=== PATIENT | female | born 1980 | race Caucasian/White ===

== ENCOUNTER 2016-05-10 14:27 | Outpatient (CLI) | payer SELFPAY ==
--- NOTE | 2016-05-10 16:49 | DIAGNOSTIC IMAGING REPORT ---
PROCEDURE: US OB LIMITED INDICATION: Late care. TECHNIQUE: Last scale and color Doppler sonographic images obtained of the gravid uterus. COMPARISON: None. FINDINGS: There is a third trimester viable intrauterine in cephalic position with cardiac activity (147). Placenta is grade 3 and right , although lower placenta location and cervix length are not well evaluated due to low head position. Amniotic fluid index is 12.8 cm (40th percentile). Normal cord Doppler ratios (1.9). Only one management (femur length 7.2 cm (37.0 weeks). IMPRESSION: 1. Third trimester viable intrauterine in cephalic position. 2. Amniotic fluid index 12.8 cm (40th percentile). 3. Normal cord Doppler ratios (1.9). 4. Low head position precludes evaluation of lower placenta and cervix length.
--- NOTE | 2016-05-10 19:11 | HISTORY AND PHYSICAL ---
ADMITTED: 05/10/2016 HISTORY OF PRESENT ILLNESS: A 35-year-old, 3, para 2, EDC 05/18/2016 by her own calculation, presents to [facility] with contractions. Contractions started on the day of admission. She denies bleeding or leakage of fluid. She reports contractions every 5 minutes. She does not recall her last menstrual period, but she states after she found out she was by a home test, she plugged her last menstrual period into an gustavo on the computer which gave her an EDC of 05/18/2016. She thinks the gustavo called for using the last day of her last menstrual period, but she does not recall for certain. She denies any care. She denies any lab tests, hospital visits, doctor visits, or ultrasound during this . She also denies any illness during this . Prior history: The patient has had 2 vaginal deliveries. She states they both came after her due date. She denies any complications or delivery complications during this . She states she thinks she had long labors and both of them lasting more than a day. She delivered at [facility] each time. She denies any anesthesia during either and states that both babies were born healthy. MEDICAL/SURGICAL HISTORY: The patient denies any prior diagnoses. She specifically denies asthma, diabetes, hypertension, heart disease. Surgeries: The patient denies any history of surgeries. MEDICATIONS: 1. ALLERGIES: 1. NONE. SOCIAL HISTORY: The patient is single. She has 2 children who live with her mother in [place] as the patient is homeless. She has been using heroin and lives "on the street." She states she smokes heroin about every 3 hours and has for the last 2 years. Alcohol use: None. Smoking: No tobacco, only heroin. FAMILY HISTORY: The patient denies family history of diabetes, hypertension, heart disease, and denies any family history of defects. REVIEW OF SYSTEMS: The patient denies fevers, chills, sweats. Neurological: The patient denies seizures, headaches, syncope. Cardiovascular: The patient denies chest pain, palpitations, or shortness of breath with exertion. Respiratory: The patient denies cough, wheezing, or pain with respirations. Gastrointestinal: The patient denies nausea, vomiting, diarrhea, or constipation. : The patient denies dysuria, hematuria, or frequency. PHYSICAL EXAMINATION: GENERAL: Well-developed, well-nourished, fatigued-appearing female with poor hygiene. VITAL SIGNS: Blood pressure 132/87. Pulse 101. Respirations 20. Temperature 98.1. HEENT: Clear. NECK: Supple without adenopathy or thyromegaly. CHEST: Clear to auscultation and percussion. HEART: Regular rate and rhythm without murmur. ABDOMEN: Positive bowel sounds. Soft, nontender, without hepatosplenomegaly or masses. Abdominal exam also reveals a gravid fundus with a 37 cm fundal height and vertex presentation. BACK: Straight without CVA tenderness. EXTREMITIES: Without cyanosis, clubbing, or edema. There is mild redness at the knee which is not tender and has full range of motion. The redness is just on the left. BREASTS: Exam shows mild fullness in the right upper quadrant of the right breast without adenopathy, induration, or erythema. The patient reports it to be slightly tender. She has not noted that problem before. She denies injury to it. GENITALIA: Normal external female genitalia. Vaginal vault reveals some whitish discharge. Cervix is high and posterior, approximately 50% effaced, and fingertip. NEUROLOGIC: The patient is moving all extremities. Deep tendon reflexes 2+ symmetric. LAB/IMAGING: panel drawn and pending. WBC 8.2, hemoglobin 10.8, hematocrit 32.1, platelets 282. Blood type A positive. Antibody screen negative. Urinalysis and urine toxicology pending. OB ultrasound obtained showing vertex presentation and vigorous-appearing female . NST was obtained showing good accelerations. Contractions were initially more frequent, but became irregular and approximately q.15 minutes. IMPRESSION: 1. Term intrauterine with uncertain dates. 2. False labor. 3. Heroin use. 4. Absence of care. PLAN: The patient kept for a period of observation as contractions became less and less frequent. Options were discussed including discharge from hospital. The patient agrees with plan for discharge and will return if she has recurrent labor. [facility] was [facility] the hospital for weekly care. vitamins advised. Methadone treatment options discussed.
== END 2016-05-10 18:40 | disposition home or self-care (01) ==
LOC: OBC SRH 14:27 → OB SRH 14:29 → OBC SRH 18:40
PROC: 4A0HXCZ Measurement of Products of Conception, Cardiac Rate, External Approach (ICD-10-PCS; principal; 2016-05-10)
DX: O47.1 False labor at or after 37 completed weeks of gestation (principal); O99.323 Drug use complicating pregnancy, third trimester; F11.90 Opioid use, unspecified, uncomplicated; O09.33 Supervision of pregnancy with insufficient antenatal care, third trimester; O09.73 Supervision of high risk pregnancy due to social problems, third trimester; Z59.0 Homelessness; Z3A.38 38 weeks gestation of pregnancy
CPT/HCPCS: 40003; 40016; 90001; 90004; 90078; 90155; 90261; 90364; 90599; 90851; 91004; 92760; 92761; 92762; 92763; 92764; 92765; 92766; 92767; 92863; 98480; 99777

== ENCOUNTER 2016-05-14 05:35 | Inpatient (IN) | payer SELFPAY ==
[2016-05-14] VITALS (9 sets, daily range): BP systolic 102–140; BP diastolic 64–90
[2016-05-14] MEDS ORDERED: PRENATAL VITAMINS PO (07:14)
--- NOTE | 2016-05-14 07:16 | HISTORY AND PHYSICAL ---
ADMITTED: 05/14/2016 CHIEF COMPLAINT: 1. Abdominal pain, in labor. HISTORY OF PRESENT ILLNESS: The patient is a 35-year-old G3, P2, who recently had been evaluated in the labor and delivery department here with lack of care and was found to be 37 and 5 less than a week ago, was discharged, was supposed to have followup with a provider and did not. Presented again in active labor and I was called to the OB department. When I came within minutes, she was She had a total of 3 pushes and then delivered an occiput anterior position baby with no nuchal cord. The baby was bulb suctioned on perineum and then cord clamped and cut, and the baby transferred to the warmer. There were no lacerations. The baby had a good spontaneous cry. The placenta was delivered spontaneously intact with light manual massage and the baby and mom were doing well after delivery. MEDICAL/SURGICAL HISTORY: Past medical history: She has generally been healthy. She has had no significant surgeries. She has had 2 previous deliveries. She denied asthma, diabetes, hypertension, as well. MEDICATIONS: 1. None. ALLERGIES: 1. SHE DENIES. SOCIAL HISTORY: She is single. She has 2 other children that live with her mother in [place]. The patient is living on the streets. She admits to smoking heroin and she has been doing this for the last number of years. She denies alcohol use. She does state that she does smoke tobacco as well. FAMILY HISTORY: She denies any diabetes, hypertension, heart disease. REVIEW OF SYSTEMS: Notable for severe pain when she came in with the contractions and also regular pains. PHYSICAL EXAMINATION: GENERAL: She is an alert female, who is sitting up in bed. She currently is and is complaining of crampy abdominal pain, "it hurts, it hurts." VITAL SIGNS: She is afebrile. ABDOMEN: Soft. Uterus is tender to palpation. GENITOURINARY/RECTAL: She has normal vaginal, perineum, and she is now . There are no lacerations. LUNGS: Clear to auscultation bilaterally. HEART: Regular rate and rhythm. BREAST: Deferred. NEUROLOGIC: Strength and sensation are grossly intact. LAB/IMAGING: All pending at this point. IMPRESSION: 1. Term intrauterine with a recent ultrasound showing greater than 37 weeks gestation, estimated date of confinement of 05/18/2016 on ultrasound. She is now post-delivery with a rapid delivery, presenting essentially . 2. Lack of care. 3. Heroin use. PLAN: The patient is now . We will see if we are able to keep her long enough to set her up with social and political studies professor and possible further treatment of her heroin addiction as an outpatient. We will also need to check on urine toxicology screen at this point. Her baby is going to need to go TIAGO protocol for withdrawals potentially.
--- NOTE | 2016-05-14 08:38 | NUR ---
PT TRANSFERED TO 319, DECLINED A SHOWER, FF 2 ABOVE U AND TO THE RIGHT, SUGGESTED SHE GET UP TO THE BATHROOM, C/O PAIN, 08/05 STARTED YEHUDA KIT, SHE IS VERY SOMNOLENT, JUST WANTS TO SLEEP, STATED IT'S OK TO FEED THE BABY IF SHE IS ASLEEP, INFORMED HER THAT CPS WILL BE NOTIFIED, LEFT MESSAGE FOR [facility] [employer] WORKED PT WOULD LIKE TO FIND A TREATMENT PROGRAM, THE PT MOTHER IS HERE AND WILL TAKE THE BABY, SHE HAS CUSTODY OF HER OTHER 2 CHILDREN,
--- NOTE | 2016-05-14 10:52 | NUR ---
woke pt up to do a fundal check, uterus was boggy and expressed a large clot with large amount of blood, massaged to firm, pericare given, pad changed, hung #3 Pit increased rate. will recheck in 1/2 hr
--- NOTE | 2016-05-14 11:18 | NUR ---
PT NAUSEATED, CALL DR GAYTAN AT [phone], HE WILL ENTER ORDERS
--- NOTE | 2016-05-14 11:32 | NUR ---
SPOKE TO HOLA MUELLER, SHE WILL BE SEEING PT SOON. EXPLAINED THAT SHE IS STARTING TO WITHDRAWL. NAUSEATED NOW BECOMING SLIGHTLY AGITATED
--- NOTE | 2016-05-14 12:57 | NUR ---
STARTED NEW MEDS FOR WITHDRAWL, SPOKE TO WALLACE MAYORGA CPS MAORI LIAISON ADVISER, ASKED ABOUT LIVING SITUATION, WHEN THE PT STATED SHE USED LAST, WHO HAS THE OTHER 2 CHILDREN
--- NOTE | 2016-05-14 20:52 | NUR ---
PT HAS BEEN SLEEPING SINCE 1500 & WOULD BARELY WAKE ENOUGH FOR ME TO ASSESS HER. WENT IN THE ROOM JUST NOW I COULD HEAR HER MOANING & GROANING. SHE HAS BLOOD SOILED UNDERPANTS ON WITH SATURATED PADS & REFUSES TO GET UP & TAKE CARE OF HERSELF. I LEFT CLEAN PANTS, PADS, & UNDERPAD AT BEDSIDE & ADVISED HER TO LET ME KNOW WHEN SHE WOULD LET ME TAKE CARE OF HER.
--- NOTE | 2016-05-14 21:37 | NUR ---
Patient behavior escalating, in a position. Moaning and repeating that she "can't do this". Calling her Mother to come in to see her. SO approaching nursing staff to help patient. Rinku driver. Discussed issues with . New orders received. Pt has not requested to see NB or asked on baby's welfare.
--- NOTE | 2016-05-14 22:42 | NUR ---
PT WRITHING AROUND IN BED MOANING & GROANING. HER MOTHER IS NOW HERE. EMESIS FOR THE LAST 20 MINUTES. TRAZADONE NOT GIVEN YET DUE TO CONSTANT EMESIS. DR. GAYTAN CALLED AGAIN. ORDERS RECD.
[2016-05-15 00:38] VITALS: BP 123/74
--- NOTE | 2016-05-15 01:00 | NUR ---
Baby Nazanin, On MARY Q3hrs continues. Not passing stool yet. Voids adequately. Skin [place], Warm & dry to touch.
[2016-05-15 01:52] VITALS: BP 115/67
--- NOTE | 2016-05-15 01:53 | NUR ---
Having periodic bouts of emesis. Kept down trazadone that was given earlier. One elevated b/p when in pain. B/P since have been wnl. No headacheor visual changes.
--- NOTE | 2016-05-15 02:25 | NUR ---
New Born Initial hearing screenings done. pass bilateral ear noted.
--- NOTE | 2016-05-15 03:00 | NUR ---
Lab;GADIEL drawn this AM.
[2016-05-15 04:07] VITALS: BP 118/58
--- NOTE | 2016-05-15 04:08 | NUR ---
Patient states "I want to go to a methadone program" . Informed that needed information can be given by environmental emergencies planner and patient would have to actively participate in plans. Will have environmental emergencies planner contact patient in AM.
--- NOTE | 2016-05-15 07:47 | Progress Note ---
Subjective General Per nursing was sleeping a lot yesterday. Has had good vitals. Some nausea and symptoms of w/d. Taking meds for w/d symptoms and then seems a little better. Has desire to continue to take some of the w/d meds. Overall feels ok. Physical Exam Vital Signs / I&Os Vital Signs Date Time Temp Pulse Resp B/P Pulse O2 O2 Flow FiO2 Ox Delivery Rate 05/15 0407 97.5 68 18 118/58 99 05/15 0152 66 18 115/67 99 05/15 0038 66 18 123/74 100 05/14 2333 Room Air 05/14 2331 98.1 78 18 140/90 99 05/14 1550 99.1 89 18 102/64 05/14 1051 93 14 130/87 05/14 0745 98.1 86 14 112/65 I&O 05/15 0000 05/14 1600 05/14 0800 Intake Total Output Total Balance General Appearance Alert, Cooperative HEENT Normal exam Lungs Clear to auscultation, Normal air movement Cardiovascular Regular rate and rhythm Abdomen Soft, tender in the mid abdomen over uterus Extremities No edema Assessment and Plan Problem List 1. care and examination Plan Patient doing ok for post . Most issues are related to her heroin withdrawl. Will give meds for w/d symptoms and then f/u with my clinic in 6 weeks for PP check or with the [facility]. Post teaching reviewed. 2. Heroin abuse Plan Patient with heroin abuse and w/d symptoms social work giving her advice on out patient follow up. Meds for w/d given x 2 weeks and then f/u pmd.
[2016-05-15] MEDS ORDERED: HYOSCYAMINE0.125 M1 SL (07:49)
[2016-05-15] MEDS ORDERED: CLONIDINE HCL0.1 MG PO (07:50)
[2016-05-15] MEDS ORDERED: METHOCARBAMOL500 MG PO (07:50)
[2016-05-15] MEDS ORDERED: TRAZODONE HCL50 MG PO (07:52)
--- NOTE | 2016-05-15 07:53 | Provider's Discharge Care Plan ---
Problem, Goal, Plan Problem List 1. care and examination Instructions: Take meds as directed 2. Heroin abuse Instructions: Take meds as directed
--- NOTE | 2016-05-15 07:53 | Provider's Discharge Care Plan ---
Problem, Goal, Plan Problem List 1. care and examination Instructions: Take meds as directed 2. Heroin abuse Instructions: Take meds as directed
[2016-05-15 08:17] VITALS: BP 113/60
--- NOTE | 2016-05-15 08:25 | NUR ---
PT IS SOMNOLENT AND ANSWERS WITH ONE WORD, NAUSEAD, SCHEDULED ZOFRAN GIVEN, DR GAYTAN D/C PT, OFFERED DEPO PT DECLINED. HER MOM WILL BE HERE TO TAKE HER HOME
--- NOTE | 2016-05-15 11:28 | NUR ---
THE PT FINALLY GOT DRESSED, DID NOT ASK ABOUT HER BABY, DID NOT TAKE AN ACTIVE PART IN THE BABY'S CARE, SHE WAS STILL NAUSEATED , ZOFRAN WAS INEFFECTIVE, SHE JUST WANTED TO LEAVE AND WAS AGITATED. THE MOTHER CAME TO PICK HER UP. TITA THE PT MOM TOLD THE BOYFRIEND HE WOULD NEED TO GET HIS OWN RIDE. AND IF HE CAME TO THE HOUSE SHE WILL HAVE HIM ARRESTED. THE PT DID NOT SEEM TO BE LISTENING TO HER DISCHARGE INSTRUCTS, THE MOTHER STATED SHE UNDERSTOOD AND WOULD HELP HER DAUGHTER ONCE THEY WERE HOME. RX GIVEN. D/C IN STABLE CONDTION
== END 2016-05-15 10:00 | disposition home or self-care (01) | DRG 560 ==
LOC: OBC SRH 05:35 → OB SRH 05:36 → OBC SRH 05:40 → OB SRH 06:16
PROVIDERS: ADMIT Family Medicine
PROC: 10E0XZZ Delivery of Products of Conception, External Approach (ICD-10-PCS; principal; 2016-05-14)
DX: O69.81X0 Labor and delivery complicated by cord around neck, without compression, not applicable or unspecified (principal); Z37.0 Single live birth; O99.324 Drug use complicating childbirth; F11.23 Opioid dependence with withdrawal; O09.33 Supervision of pregnancy with insufficient antenatal care, third trimester; Z3A.37 37 weeks gestation of pregnancy
CPT/HCPCS: 40010